=== PATIENT | male | born 1945 ===

== ENCOUNTER 2016-12-17 08:38 | Inpatient (IN) | payer OTHER ==
[2016-12-17] MEDS ORDERED: LIDOCAINE 1% 300 MG/30 ML SDV ONE (08:42)
[2016-12-17] MEDS ORDERED: MIDAZOLAM 2 MG/2 ML VIAL ONE ×2 (08:43→09:23)
[2016-12-17] MEDS ORDERED: VERAPAMIL 5 MG/2 ML VIAL ONE (08:43)
[2016-12-17] MEDS ORDERED: HEPARIN 10,000 UNIT/10 ML MDV ONE ×2 (08:43→10:00)
[2016-12-17] MEDS ORDERED: fentaNYL 100 MCG/2 ML INJ ONE (08:43)
[2016-12-17] MEDS ORDERED: IOPAMIDOL (ISOVUE-370) 150 ML BTL IV ONE ×2 (08:43→10:14)
[2016-12-17] MEDS ORDERED: ETOMIDATE 20 MG/10 ML VIAL IVP ONE (08:46)
[2016-12-17] MEDS ORDERED: BIVALIRUDIN 250 MG/5 ML VIAL IV ONE (08:47)
[2016-12-17] MEDS ORDERED: SUCCINYLCHOLINE CHLORIDE 200 MG/10 ML VIAL IVP ONE (08:47)
[2016-12-17] MEDS ORDERED: NITROGLYCERIN 1,500 MCG/15 ML VIAL MISC ONE (08:48)
[2016-12-17 08:52] VITALS: RESP 16
[2016-12-17 08:56] VITALS: O2SAT 93
[2016-12-17] MEDS ORDERED: MIDAZOLAM 2 MG/2 ML VIAL IVP ONE (09:00)
[2016-12-17 09:02] LABS: % IMMATURE GRANULYOCYTES 2.5 % (0.0-1.1); ABSOLUTE IMMATURE GRANULOCYTES 0.19 10^3/uL (0.00-0.10); ABSOLUTE NRBC COUNT 0.02 10^3/uL (0-0.01); ADD DIFF? NO; ADD MORPH? NO; ADD SCAN? NO; ATYPICAL LYMPHOCYTE FLAG 30 (0-99); FRAGMENT RBC FLAG 0 (0-99); HEMATOCRIT 51.6 % (40.0-51.0); HEMOGLOBIN 16.9 g/dL (13.7-17.5); LEFT SHIFT FLG 20 (0-99); LIPEMIA HEMOLYSIS FLAG 80 (0-99); MEAN CELL HEMOGLOBIN 30.5 pg (27.9-34.1); MEAN CELL HEMOGLOBIN CONCENTR. 32.8 g/dL (32.4-36.7); MEAN PLATELET VOLUME 12.6 fL (8.7-11.7); NRBC-AUTO% 0.3 % (0.0-0.2); PLATELET CLUMPS FLAG 10 (0-99); PLATELET COUNT 159 10^3/uL (150-400); RED BLOOD CELL COUNT 5.55 10^6/uL (4.40-6.38); RED CELL DISTRIBUTION WIDTH 13.7 % (11.5-15.2)
--- NOTE | 2016-12-17 09:08 | EDPHY ---
H & P Time Seen by Provider: 12/17/16 09:07 HPI/ROS: Chief complaint. Cardiac arrest HPI. Patient is a 71-year-old male here by EMS [place] Bystanders say that the patient suddenly collapsed. Bystander CPR was performed. Patient was found to be in asystole per EMS. He was given epinephrine intravenously with return of pulses. He was in ventricular tachycardia and was cardioverted with 200 joules. Patient arrives with agonal respirations and spontaneous but nonpurposeful movements. He does have pulses and blood pressure. Heart rate is about 150. Oxygen saturation is in the 80s. He vomits in the emergency department. ROS Unknown other than the above history Past Medical/Surgical History: Unknown Social History: Unknown Physical Exam: General Appearance: Nonpurposeful moved male severe distress vital signs show heart rate initially 150, blood pressure 120/93, O2 saturation was recorded at 91% but generally has been in the 80s Eyes: Pupils are reactive. ENT, vomited in mouth Respiratory: Inspiratory expiratory rhonchi and agonal respirations Cardiovascular: Tachycardia Gastrointestinal: Distended and large right inguinal hernia Neurological: Nonpurposeful movements Skin: Warm and dry, no rashes. Musculoskeletal: Neck is restrained in the emergency department as the history as the patient fell. Extremities symmetrical, full range of motion. Psychiatric: Agonal respirations. Nonverbal. Non purposeful movements Constitutional: Initial Vital Signs Heart Rate 150 H 12/17/16 08:40 Respiratory Rate 16 12/17/16 08:40 Blood Pressure 120/93 H 12/17/16 08:40 O2 Sat (%) 91 L 12/17/16 08:40 O2 Delivery Mode Ventilator Allergies/Adverse Reactions: No Known Allergies Allergy (Unverified 12/17/16 11:01) Home Medications: Medication Instructions Recorded Aspirin [Aspirin 325 mg (*)] 325 mg PO DAILY PRN 12/17/16 Aspirin [Aspirin 81mg (*)] 81 mg PO DAILY 12/17/16 Herbals/Supplements -Info Only 1 ea PO DAILY 12/17/16 Multivitamins [Multivitamin (*)] 1 each PO DAILY 12/17/16 [place]-3 Fatty Acids [Fish Oil 1000 1,000 mg PO DAILY 12/17/16 mg (*)] Medical Decision Making - Diagnostics EKG Interpretation: Sinus tachycardia with left axis deviation. Appears that there is acute ST elevation in the anterior septal leads with reciprocal depression. There is a left bundle branch block present. No arrhythmia. Heart rate is 121 Imaging Results: Imaging Impressions Chest X-Ray 12/17/16 08:42 Impression: 1. Status post intubation and placement of an esophagogastric tube. 2. Cardiomegaly with interstitial edema. One-view chest x-ray shows endotracheal tube in good position. Possible aspiration Procedures: IV normal saline, monitor. Patient arrives with no IV. He had an interosseous line placed per EMS but they accidentally pulled out while getting out of the ambulance. Rapid sequence intubation is performed by me with indication of airway protection and inadequate ventilation. I gave the patient etomidate 20 mg IV and succinylcholine 125 mg IV. Patient had good visualization of his cords with the glide scope but I was unable to get the tube to move enough anterior to get through the cords. He is then bagged and suction and up to oxygen saturation 93%. 2nd pass using laryngoscope and 7.5 blade was successful. The tube passed through the cords. Color change on colorimeter. Steam in tube. Bilateral breath sounds. Stable oxygen saturation. Following endotracheal intubation patient has an NG tube placed as it appears he has some gastric distension ED Course/Re-evaluation: Cardiac alert is called and and analytical lab analyst response. Patient is taken to analytical lab analyst for possible reperfusion. Differential Diagnosis: Differential diagnosis includes acute coronary syndrome, a arrhythmia, pulmonary embolus as causes of cardiac arrest. Patient has been resuscitated and now intubated. He is in critical condition and will go to the analytical lab analyst Critical Care Time: Critical care time exclusive of procedures 40 minutes - Data Points Laboratory Results: Laboratory Results 12/17/16 08:42 12/17/16 08:42 12/17/16 12/17/16 12/17/16 09:20 08:42 08:42 WBC 7.72 10^3/uL 10^3/uL (3.80-9.50) RBC 5.55 10^6/uL 10^6/uL (4.40-6.38) Hgb 16.9 g/dL g/dL (13.7-17.5) POC Hgb Hct 51.6 % H % (40.0-51.0) POC Hct MCV 93.0 fL fL (81.5-99.8) MCH 30.5 pg pg (27.9-34.1) MCHC 32.8 g/dL g/dL (32.4-36.7) RDW 13.7 % % (11.5-15.2) Plt Count 159 10^3/uL 10^3/uL (150-400) MPV 12.6 fL H fL (8.7-11.7) Neut % (Auto) 21.8 % L % (39.3-74.2) Lymph % (Auto) 65.3 % H % (15.0-45.0) [place] % (Auto) 5.6 % % (4.5-13.0) Eos % (Auto) 3.9 % % (0.6-7.6) Baso % (Auto) 0.9 % % (0.3-1.7) Nucleat RBC Rel Count 0.3 % H % (0.0-0.2) Absolute Neuts (auto) 1.69 10^3/uL L 10^3/uL (1.70-6.50) Absolute Lymphs (auto) 5.04 10^3/uL H 10^3/uL (1.00-3.00) Absolute Monos (auto) 0.43 10^3/uL 10^3/uL (0.30-0.80) Absolute Eos (auto) 0.30 10^3/uL 10^3/uL (0.03-0.40) Absolute Basos (auto) 0.07 10^3/uL 10^3/uL (0.02-0.10) Absolute Nucleated RBC 0.02 10^3/uL H 10^3/uL (0-0.01) Immature Gran % 2.5 % H % (0.0-1.1) Immature Gran # 0.19 10^3/uL H 10^3/uL (0.00-0.10) Puncture Site LEFT FEMORAL Patient Temperature 37.0 DEGREES DEGREES pCO2 55 mmHg H mmHg (34-38) pO2 82 mmHg H mmHg (65-75) Total CO2 18 mEq/L L mEq/L (23-27) ABG pH 7.11 L* (7.35-7.45) ABG PO2/FiO2 Ratio 82 RATIO RATIO ABG HCO3 17 mEq/L L mEq/L (22-26) ABG O2 Saturation 91 % L % (92-95) ABG Base Excess -13.2 mEq/L L mEq/L (-2.5-2.5) O2 Concentration % 100 % % (0-100) Respiration Rate 20 Actual Respiration Rate 18 Set Respiration Rate 20 SIMV YES PEEP 5 POC Sodium Sodium 141 mEq/L mEq/L (134-144) POC Potassium Potassium 3.9 mEq/L mEq/L (3.5-5.2) POC Chloride Chloride 105 mEq/L mEq/L (97-110) Carbon Dioxide 11 mEq/l L mEq/l (22-31) Anion Gap 25 mEq/L H mEq/L (8-16) POC BUN BUN 14 mg/dL mg/dL (7-23) Creatinine 1.3 mg/dL mg/dL (0.7-1.3) POC Creatinine Estimated GFR 54 Glucose 306 mg/dL H mg/dL (70-100) POC Glucose Calcium 9.5 mg/dL mg/dL (8.5-10.4) Troponin I 0.015 ng/mL ng/mL (0-0.034) Ethyl Alcohol < 10 mg/dL mg/dL (0-10) 12/17/16 08:37 WBC RBC Hgb POC Hgb 17.3 gm/dL gm/dL (13.7-17.5) Hct POC Hct 51 % % (40-51) MCV MCH MCHC RDW Plt Count MPV Neut % (Auto) Lymph % (Auto) Dav[place] % (Auto) Eos % (Auto) Baso % (Auto) Nucleat RBC Rel Count Absolute Neuts (auto) Absolute Lymphs (auto) Absolute Monos (auto) Absolute Eos (auto) Absolute Basos (auto) Absolute Nucleated RBC Immature Gran % Immature Gran # Puncture Site Patient Temperature pCO2 pO2 Total CO2 ABG pH ABG PO2/FiO2 Ratio ABG HCO3 ABG O2 Saturation ABG Base Excess O2 Concentration % Respiration Rate Actual Respiration Rate Set Respiration Rate SIMV PEEP POC Sodium 143 mEq/L mEq/L (134-144) Sodium POC Potassium 3.9 mEq/L mEq/L (3.3-5.0) Potassium POC Chloride 106 mEq/L mEq/L (97-110) Chloride Carbon Dioxide Anion Gap POC BUN 17 mg/dL mg/dL (7-23) BUN Creatinine POC Creatinine 1.3 mg/dL mg/dL (0.7-1.3) Estimated GFR Glucose POC Glucose 304 mg/dL H mg/dL (70-100) Calcium Troponin I Ethyl Alcohol Medications Given: Discontinued Medications Etomidate (Etomidate) 20 mg IVP EDNOW ONE Stop: 12/17/16 08:47 Last Admin: 12/17/16 08:46 Dose: 20 mg Furosemide (Lasix Injection) 40 mg IVP ONCE ONE Stop: 12/17/16 13:23 Last Admin: 12/17/16 13:19 Dose: 40 mg Epinephrine HCl 1 mg/ Dextrose 250 mls @ 0 mls/hr IV CONT GAYLE; Per Protocol PRN Reason: Protocol Stop: 06/15/17 09:59 Last Admin: 12/17/16 12:42 Dose: 250 mls Midazolam HCl (Versed) 5 mg IVP EDNOW ONE Stop: 12/17/16 09:01 Last Admin: 12/17/16 09:00 Dose: 5 mg Sodium Bicarbonate (Sodium Bicarbonate) 50 meq IVP ONCE ONE Stop: 12/17/16 11:42 Last Admin: 12/17/16 11:59 Dose: 50 meq Succinylcholine Chloride (Quelicin) 120 mg IVP EDNOW ONE Stop: 12/17/16 08:48 Last Admin: 12/17/16 08:47 Dose: 120 mg Point of Care Test Results: 12/17/16 08:37 POC Sodium 143 POC Potassium 3.9 POC Chloride 106 POC BUN 17 POC Creatinine 1.3 POC Glucose 304 H Departure - Departure Disposition: [facility] Inpatient Acute Clinical Impression: Cardiac arrest Condition: Critical
[2016-12-17] MEDS ORDERED: DOPamine/DEXTROSE/250 ML BAG IV ONE (09:12)
[2016-12-17] MEDS ORDERED: PHENYLEPHRINE HCL 100 MCG/ML SYR ONE (09:13)
--- NOTE | 2016-12-17 09:15 | CPEKG ---
Heart Rate: 121 RR Interval: 496 P-R Interval: 100 QRSD Interval: 166 QT Interval: 388 QTC Interval: 551 P [place]: 223 QRS [place]: 13 T Wave [place]: 140 EKG Severity - ABNORMAL ECG - EKG Impression: SINUS OR ECTOPIC ATRIAL TACHYCARDIA EKG Impression: LEFT BUNDLE BRANCH BLOCK Electronically Signed By: Wayne Carvajal 17-Dec-2016 16:02:31
[2016-12-17 09:19] VITALS: BP 120/93; PULSE 146
[2016-12-17 09:21] LABS: TROPONIN I 0.015 ng/mL (0-0.034)
[2016-12-17] MEDS ORDERED: ETOMIDATE 40 MG/20 ML INJ ONE (09:21)
[2016-12-17] MEDS ORDERED: SUCCINYLCHOLINE CHLORIDE*ANESTHESIA ONLY*200 MG/10 ML SYR IVP ONE (09:22)
[2016-12-17 09:31] LABS: CALCIUM 9.5 mg/dL (8.5-10.4); CARBON DIOXIDE 11 mEq/l (22-31); CHLORIDE 105 mEq/L (97-110); CREATININE 1.3 mg/dL (0.7-1.3); GLOMERULAR FILTRATION RATE 54; GLUCOSE 306 mg/dL (70-100); SODIUM 141 mEq/L (134-144)
[2016-12-17] MEDS ORDERED: VECURONIUM BROMIDE 10 MG VIAL ONE ×2 (09:37→09:40)
[2016-12-17 09:41] LABS: BASE EXCESS -13.2 mEq/L (-2.5-2.5); BICARBONATE 17 mEq/L (22-26); MEASURED OXYGEN SATURATION 91 % (92-95); PCO2 55 mmHg (34-38); PO2 82 mmHg (65-75); TCO2 18 mEq/L (23-27)
[2016-12-17 09:43] LABS: O2 CONCENTRATIION 100 % (0-100); P/F RATIO 82 RATIO; PATIENT RATE 18; SIMV YES; TOTAL RATE 20
[2016-12-17 09:51] LABS: ANION GAP 25 mEq/L (8-16); POTASSIUM 3.9 mEq/L (3.5-5.2)
[2016-12-17 10:19] LABS: ETHANOL SERUM < 10 mg/dL (0-10)
[2016-12-17 10:19] LABS: BASE EXCESS -12.1 mEq/L (-2.5-2.5); BICARBONATE 18 mEq/L (22-26); MEASURED OXYGEN SATURATION 79 % (92-95); PCO2 58 mmHg (34-38); PO2 57 mmHg (65-75); TCO2 20 mEq/L (23-27)
[2016-12-17 10:24] LABS: SIMV YES
[2016-12-17 10:25] LABS: O2 CONCENTRATIION 100 % (0-100); P/F RATIO 57 RATIO; TOTAL RATE 24
[2016-12-17] MEDS ORDERED: ATROPINE SULFATE 1 MG/10 ML SYR IVP PRN (11:01)
[2016-12-17] MEDS ORDERED: NITROGLYCERIN 0.4 MG BTL SL PRN (11:01)
--- NOTE | 2016-12-17 11:14 | PDCARCONS ---
Cardiology Consult Reason for Consult: Cardiac alert Chief Complaint: Cardiac alert Requesting Physician: Wei History of Present Illness: 71-year-old male no prior cardiovascular history [place] bus [place]. He went down acutely without complaint. Initial bystander CPR was performed. On arrival of the paramedics he was found to be in asystole. He was given epinephrine with return of spontaneous circulation and brought to the emergency department on my arrival he had a left bundle branch block with tachycardia. He was paralyzed and being intubated by Dr. Carvajal. In light of sudden cardiac arrest with asystole he was brought to the cardiac cath lab manager for further evaluation. Past medical history is negative for coronary artery disease. He has not seen a physician in some time. Risk factors reported by his were negative for hypertension, hyperlipidemia , smoking, diabetes, family history of early heart disease. Patient has been traveling recently just completed a long car trip to [place] again back and forth a week and a half ago. Review of systems by his 's account was negative for any illness recently. History Information - Allergies/Home Medication List Allergies/Adverse Reactions: No Known Allergies Allergy (Unverified 12/17/16 11:01) I have personally reviewed and updated: family history, medical history, social history, surgical history - Past Medical History no pertinent PMH - Surgical History Reports: no pertinent surgical hx - Family History Positive for: non-pertinent - Social History Smoking Status: Never smoked Alcohol Use: Occasionally Physical Exam Temp Pulse Resp BP Pulse Ox 146 H 16 120/93 H 93 12/17/16 09:00 12/17/16 09:00 12/17/16 09:00 12/17/16 09:00 Constitutional: other (Acutely ill, paralyzed and intubated) Cardiovascular: regular rate and rhythym Peripheral Pulses: 1+: carotid (R), carotid (L), 2+: femoral (R), femoral (L) Respiratory: rhonchi Gastrointestinal: normoactive bowel sounds, other (Large inguinal hernia on the right) Skin: no rashes or abrasions Neurologic: other (Paralyzed in drug induced coma) Lab and Imaging 12/17/16 08:42 12/17/16 08:42 WBC 7.72 10^3/uL (3.80-9.50) 12/17/16 08:42 RBC 5.55 10^6/uL (4.40-6.38) 12/17/16 08:42 Hgb 16.9 g/dL (13.7-17.5) 12/17/16 08:42 POC Hgb 17.3 gm/dL (13.7-17.5) 12/17/16 08:37 Hct 51.6 % (40.0-51.0) H 12/17/16 08:42 POC Hct 51 % (40-51) 12/17/16 08:37 MCV 93.0 fL (81.5-99.8) 12/17/16 08:42 MCH 30.5 pg (27.9-34.1) 12/17/16 08:42 MCHC 32.8 g/dL (32.4-36.7) 12/17/16 08:42 RDW 13.7 % (11.5-15.2) 12/17/16 08:42 Plt Count 159 10^3/uL (150-400) 12/17/16 08:42 MPV 12.6 fL (8.7-11.7) H 12/17/16 08:42 Neut % (Auto) 21.8 % (39.3-74.2) L 12/17/16 08:42 Lymph % (Auto) 65.3 % (15.0-45.0) H 12/17/16 08:42 [place] % (Auto) 5.6 % (4.5-13.0) 12/17/16 08:42 Eos % (Auto) 3.9 % (0.6-7.6) 12/17/16 08:42 Baso % (Auto) 0.9 % (0.3-1.7) 12/17/16 08:42 Nucleat RBC Rel Count 0.3 % (0.0-0.2) H 12/17/16 08:42 Absolute Neuts (auto) 1.69 10^3/uL (1.70-6.50) L 12/17/16 08:42 Absolute Lymphs (auto) 5.04 10^3/uL (1.00-3.00) H 12/17/16 08:42 Absolute Monos (auto) 0.43 10^3/uL (0.30-0.80) 12/17/16 08:42 Absolute Eos (auto) 0.30 10^3/uL (0.03-0.40) 12/17/16 08:42 Absolute Basos (auto) 0.07 10^3/uL (0.02-0.10) 12/17/16 08:42 Absolute Nucleated RBC 0.02 10^3/uL (0-0.01) H 12/17/16 08:42 Immature Gran % 2.5 % (0.0-1.1) H 12/17/16 08:42 Immature Gran # 0.19 10^3/uL (0.00-0.10) H 12/17/16 08:42 Puncture Site LEFT FEMORAL 12/17/16 10:05 Patient Temperature 37.0 DEGREES 12/17/16 10:05 pCO2 58 mmHg (34-38) H 12/17/16 10:05 pO2 57 mmHg (65-75) L 12/17/16 10:05 Total CO2 20 mEq/L (23-27) L 12/17/16 10:05 ABG pH 7.12 (7.35-7.45) L* 12/17/16 10:05 ABG PO2/FiO2 Ratio 57 RATIO 12/17/16 10:05 ABG HCO3 18 mEq/L (22-26) L 12/17/16 10:05 ABG O2 Saturation 79 % (92-95) L 12/17/16 10:05 ABG Base Excess -12.1 mEq/L (-2.5-2.5) L 12/17/16 10:05 O2 Concentration % 100 % (0-100) 12/17/16 10:05 Respiration Rate 24 12/17/16 10:05 Actual Respiration Rate 18 12/17/16 09:20 Set Respiration Rate 24 12/17/16 10:05 SIMV YES 12/17/16 10:05 Tidal Volume 700 12/17/16 10:05 PEEP 8 12/17/16 10:05 POC Sodium 143 mEq/L (134-144) 12/17/16 08:37 Sodium 141 mEq/L (134-144) 12/17/16 08:42 POC Potassium 3.9 mEq/L (3.3-5.0) 12/17/16 08:37 Potassium 3.9 mEq/L (3.5-5.2) 12/17/16 08:42 POC Chloride 106 mEq/L (97-110) 12/17/16 08:37 Chloride 105 mEq/L (97-110) 12/17/16 08:42 Carbon Dioxide 11 mEq/l (22-31) L 12/17/16 08:42 Anion Gap 25 mEq/L (8-16) H 12/17/16 08:42 POC BUN 17 mg/dL (7-23) 12/17/16 08:37 BUN 14 mg/dL (7-23) 12/17/16 08:42 Creatinine 1.3 mg/dL (0.7-1.3) 12/17/16 08:42 POC Creatinine 1.3 mg/dL (0.7-1.3) 12/17/16 08:37 Estimated GFR 54 12/17/16 08:42 Glucose 306 mg/dL (70-100) H 12/17/16 08:42 POC Glucose 304 mg/dL (70-100) H 12/17/16 08:37 Calcium 9.5 mg/dL (8.5-10.4) 12/17/16 08:42 Troponin I 0.015 ng/mL (0-0.034) 12/17/16 08:42 Ethyl Alcohol < 10 mg/dL (0-10) 12/17/16 08:42 Visualized and Interpreted EKG results: Yes EKG Interpretation: Positive for: left bundle branch block A/P Assessment: Discussion: Acute cardiac arrest with initial rhythm of asystole responded to IV epinephrine. EKG now shows left bundle branch block. Recommendations are for urgent cardiac catheterization as this is considered an ST segment elevation equivalent. With asystole am concerned about pulmonary embolic disease in the setting of recent travel. Prognosis is somewhat guarded. Discussed with . Will proceed
[2016-12-17] MEDS ORDERED: HEPARIN/DEXTROSE 500 ML IV SCH (11:15)
--- NOTE | 2016-12-17 11:21 | PDDXCAT ---
Diagnostic Cath Note - . Date: 12/17/16 Level Vial Inside Grinder: [place] Indication: Resuscitated from sudden cardiac - Procedure Access: left groin Procedure: left heart catheterization, coronary angiography - Materials Left Heart Cath size: 6F Left Heart Cath materials: standard multipack (JL4, JR4, pigtail) - Findings-Left Heart Catheterization LM: Unobstructed LAD: 85% stenosis of the mid LAD with GIL grade 3 flow LCX: 75% stenosis with GIL grade 3 flow RCA: Dominant: 85% stenosis with GIL grade 3 flow Complications: Asystolic cardiac arrest on the table requiring CPR. Assessment: 1. Diffuse three-vessel coronary disease with GIL grade 3 flow. 2. Severe LV dysfunction by echocardiogram ejection fraction initially less than 20%. Plan: After reviewing diagnostic angiograms, the patient was relatively stable. I considered the possibility of PCI of the LAD and right coronary. This was in the setting of severe LV dysfunction and cardiac arrest. After anticoagulating the patient and putting a JL4 guiding catheter in left main coronary artery attempts at wiring the LAD were made. As we are beginning the procedure he became asystolic again. CPR was performed immediately. The patient was administered multiple rounds of epinephrine and 2 mg of atropine with restorationist of a regular rhythm. An echocardiogram continued to show severe LV dysfunction, PA pressures were estimated 100 mm of mercury. At this point it was elected to put an intra-aortic balloon pump in to support blood pressure. This was performed from the left femoral artery patient continued to have episodes of bradycardia and asystole. Using a 7 Georgian PYP catheter I went through the the right heart into the right pulmonary artery. PA pressures fell from 100-50 mm of mercury with stabilization of rate and blood pressure. Based on recent travel I was concerned about pulmonary embolic disease. Dr. Tracey from Radiology was emergently consulted. She came and performed a pulmonary arteriogram which revealed a widely patent left and right pulmonary artery. Dr. Patton assisted me with insertion of the intra-aortic balloon pump. A 7 Georgian sheath was inserted in the right femoral artery for minus of blood pressure. A temporary pacing wire was advanced from the left femoral vein into the right heart capture was obtained. This was done in the setting of complete heart block. It was set at 110 beats per minute. Metabolic assessment revealed a pH is 7.14. He was administered 2 amps of bicarbonate. He was started on epinephrine drip as well as a dopamine drip to support blood pressure. Echocardiography showed serial improvement in LV function with the balloon pump and IV pressors. It was elected to stop at this time and transfer the patient to the intensive care unit for correction of his metabolic abnormalities and stabilization. Depending on how he recovers would consider revascularization in the future. Procedures performed 1. Left heart catheterization coronary angiography. Intra procedure echocardiogram. CPR with ACLS. Insertion of an intra-aortic balloon pump. Insertion of a temporary pacing wire. Insertion of a right heart catheter with pulmonary arteriogram. Final diagnosis status post cardiac arrest with a ischemic cardiomyopathy and cardiogenic shock. At the time of transfer from the matlab developer PH remains poor at 7.15. Prognosis is somewhat guarded. Results discussed with the patient's and daughter who is a nurse. Will continue aggressive supportive care with clinical follow-up. Patient Problems: Problems Problem Status Onset Cardiogenic shock Acute Acute systolic heart failure Acute Ischemic dilated cardiomyopathy Acute Coronary artery disease Acute Cardiac arrest Acute
[2016-12-17 11:28] LABS: BASE EXCESS -10.7 mEq/L (-2.5-2.5); BICARBONATE 21 mEq/L (22-26); MEASURED OXYGEN SATURATION 62 % (92-95); PO2 43 mmHg (65-75); TCO2 23 mEq/L (23-27)
[2016-12-17] MEDS ORDERED: NOREPINEPHRINE/NS 500 ML IV SCH (11:30)
[2016-12-17] MEDS ORDERED: SODIUM BICARBONATE 50 MEQ/50 ML SYR IVP ONE (11:41)
[2016-12-17 11:42] LABS: ASSIST CONTROL YES
[2016-12-17 11:43] LABS: END TIDAL CO2 15
[2016-12-17 11:45] LABS: PCO2 72 mmHg (34-38)
[2016-12-17] MEDS ORDERED: FUROSEMIDE 20 MG/2 ML VIAL ONE ×2 (11:45→12:53)
[2016-12-17] MEDS ORDERED: SODIUM BICARBONATE 150 MEQ in D5W 1,000 ML IV SCH (11:45)
[2016-12-17] MEDS ORDERED: D5W 1,000 ML IV SCH (11:47)
[2016-12-17] MEDS ORDERED: SODIUM BICARBONATE 50 MEQ/50 ML SYR ONE (11:47)
[2016-12-17] MEDS ORDERED: D50W 25 GM/50 ML SYR IVP PRN (11:47)
[2016-12-17] MEDS ORDERED: INSULIN REGULAR HUMAN 100 UNIT in NS 100 ML IV SCH (11:47)
[2016-12-17 12:05] LABS: ALANINE AMINOTRANSFERASE 256 IU/L (21-72); ALKALINE PHOSPHATASE 49 IU/L (38-126); ANION GAP 13 mEq/L (8-16); ASPARTATE AMINOTRANSFERASE 325 IU/L (17-59); BILIRUBIN,TOTAL 0.9 mg/dL (0.1-1.4); BILIRUBIN-CONJUGATED 0.5 mg/dL (0.0-0.5); BILIRUBIN-UNCONJUGATED 0.4 mg/dL (0.0-1.1); CALCIUM 7.3 mg/dL (8.5-10.4); CARBON DIOXIDE 20 mEq/l (22-31); CHLORIDE 104 mEq/L (97-110); CREATININE 1.3 mg/dL (0.7-1.3); GLOMERULAR FILTRATION RATE 54; GLUCOSE 437 mg/dL (70-100); MAGNESIUM 2.4 mg/dL (1.6-2.3); POTASSIUM 3.7 mEq/L (3.5-5.2); SODIUM 137 mEq/L (134-144); TOTAL PROTEIN 5.5 g/dL (6.3-8.2)
--- NOTE | 2016-12-17 12:38 | ECHO ---
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 The RVSP based on the tricuspid regurgitant jet was near 100 mmHg and post Right heart cath the pressures were near 50 mmHg. Aortic Valve There is moderate aortic valve calcification. The Ao mean PG was 19 mmHg on a balloon pump. Conclusion This is a limited echo to evaluate for LV Fx/Cardiac alert. The initial images of the left venticle demonstrated a ejection fraction of 25%, He then went into cardiac arrest and cardiac images post arrest displayed a ejection fraction of 15% Balloon pump placed. The RVSP based on the tricuspid regurgitant jet was near 100 mmHg and post Right heart cath the pressures were near 50 mmHg. There is moderate aortic valve calcification. The Ao mean PG was 19 mmHg on a balloon pump. Final EF 35-45% Mild aortic stenosis. Final Reading Physician: Khurram Jones signed on 12/17/2016 12:36 PM Ordering Physician: MAGEN ARMANDO Performed By: Bill Bowen, CS
[2016-12-17] MEDS ORDERED: EPINEPHrine 1 MG/10 ML SYR IVP ONE ×2 (12:40→16:10)
[2016-12-17 12:56] LABS: CK-MB INTERPRETATION POSITIVE (NEGATIVE)
[2016-12-17] MEDS ORDERED: FUROSEMIDE 40 MG/4 ML VIAL IVP ONE (13:22)
[2016-12-17] MEDS: EPINEPHrine 2 MG in D5W 500 ML IV SCH ×3 (13:23→15:06)
[2016-12-17 14:35] LABS: BASE EXCESS -9.8 mEq/L (-2.5-2.5); BICARBONATE 23 mEq/L (22-26); MEASURED OXYGEN SATURATION 75 % (92-95); PCO2 75 mmHg (34-38); PO2 50 mmHg (65-75); TCO2 25 mEq/L (23-27)
[2016-12-17 14:42] LABS: ASSIST CONTROL YES; O2 CONCENTRATIION 100 % (0-100); P/F RATIO 50 RATIO
[2016-12-17 14:43] LABS: TOTAL RATE 30
[2016-12-17] MEDS ORDERED: ALBUMIN 5% 500 ML BOTTLE IV ONE (14:56)
[2016-12-17 14:57] LABS: ADD DIFF? NO; ADD MORPH? NO; ADD SCAN? YES; ATYPICAL LYMPHOCYTE FLAG 10 (0-99); FRAGMENT RBC FLAG 0 (0-99); HEMATOCRIT 49.1 % (40.0-51.0); HEMOGLOBIN 16.2 g/dL (13.7-17.5); LIPEMIA HEMOLYSIS FLAG 80 (0-99); MEAN CELL HEMOGLOBIN 29.8 pg (27.9-34.1); MEAN CELL VOLUME 90.3 fL (81.5-99.8); MEAN PLATELET VOLUME 12.4 fL (8.7-11.7); PLATELET CLUMPS FLAG 10 (0-99); PLATELET COUNT 175 10^3/uL (150-400); RED BLOOD CELL COUNT 5.44 10^6/uL (4.40-6.38); RED CELL DISTRIBUTION WIDTH 14.2 % (11.5-15.2)
[2016-12-17 14:58] LABS: LEFT SHIFT FLG 230 (0-99)
[2016-12-17 15:06] LABS: INR 1.34 (0.83-1.16); PROTIME(PATIENT) 16.6 SEC (12.0-15.0)
[2016-12-17 15:47] LABS: SCAN POSITIVE
[2016-12-17 15:53] LABS: PLATELET ESTIMATE ADEQUATE (ADEQ)
[2016-12-17 16:00] LABS: CK-MB INTERPRETATION POSITIVE (NEGATIVE)
--- NOTE | 2016-12-17 16:04 | PDANEPAE ---
ANE History of Present Illness resp faliure ANE Past Medical History Past Medical History: pt in extremis in ICU. Oxy sats in 60s, intubated, ventillated, pressure supported by epi and bicarb infusion, ANE Review of Systems Review of Systems: unable to obtain - Pacemaker Pacemaker Set Rate: 100 ANE Patient History - Allergies Allergies/Adverse Reactions: No Known Allergies Allergy (Unverified 12/17/16 11:01) - Home Medications Home Medications: Aspirin [Aspirin 325 mg (*)] 325 mg PO DAILY PRN 12/17/16 [Last Taken Unknown] Aspirin [Aspirin 81mg (*)] 81 mg PO DAILY 12/17/16 [Last Taken Unknown] Herbals/Supplements -Info Only 1 ea PO DAILY 12/17/16 [Last Taken Unknown] Multivitamins [Multivitamin (*)] 1 each PO DAILY 12/17/16 [Last Taken Unknown] [place]-3 Fatty Acids [Fish Oil 1000 mg (*)] 1,000 mg PO DAILY 12/17/16 [Last Taken Unknown] - Smoking Hx Smoking Status: Never smoked - Alcohol Use Alcohol Use: Occasionally ANE Labs/Vital Signs - Labs Result Diagrams: 12/17/16 14:15 12/17/16 11:40 - Vital Signs Blood Pressure: 120/93 Heart Rate: 146 Respiratory Rate: 16 O2 Sat (%): 93 Height: 167.64 cm Weight: 95 kg ANE Physical Exam - Airway Mallampati Score: Unable to assesss Mouth exam: ETT in situ - Pulmonary Pulmonary: respiratory distress - Cardiovascular Cardiovascular: other (external pacer and balloon pump) - ASA Status ASA Status: V, E ANE Anesthesia Plan Anesthesia Plan: general endotracheal anesthesia Lines/Monitors: arterial line, central line, SHAQUILLE Urgent/Emergent Case: Adwoa ortiz completed preop but documented later for safe timely pt care (pre-op evaluation filled out in computer after case completed)
[2016-12-17] MEDS ORDERED: ROCURONIUM 50 MG/5 ML VIAL ONE (16:11)
--- NOTE | 2016-12-17 17:03 | GCON ---
[f rep st] CONSULTATION PULMONARY/CRITICAL CARE CONSULTATION DATE OF CONSULTATION: 12/17/2016 REFERRING PHYSICIAN: Greg Delarosa MD REASON FOR CONSULTATION: Management of refractory hypoxemia with pulmonary edema. HISTORY: The patient is a 71-year-old gentleman who does not get routine medical care, but has no significant medical problems or limitations. He had just recently returned from a trip to [place]. Bystander CPR was performed. He was found to be in asystole and was given epinephrine with return of spontaneous circulation. He was brought to the emergency department. He was intubated in the emergency department and brought to the catheterization lab emergently, where Dr. Delarosa found the patient had significant triple-vessel disease, but no acute thrombosis. He was also found to have severe pulmonary hypertension. Dr. Delarosa attempted to engage the left anterior descending coronary artery, but the patient had repeat asystole during that time, and those efforts were abandoned. The patient's rhythm was restored. A pulmonary angiography was performed with Drs. Delarosa and Alexy, and there were no proximal pulmonary emboli seen. The patient was brought back to the intensive care unit on epinephrine with an intra-aortic balloon pump. He had severe hypoxemia. PAST MEDICAL HISTORY: None. ALLERGIES: None. MEDICATIONS: None. SOCIAL HISTORY: The patient does not smoke. He uses alcohol occasionally. REVIEW OF SYSTEMS: Unobtainable. PHYSICAL EXAMINATION: GENERAL: The patient is intubated. He is not on any sedation. He is unresponsive. VITAL SIGNS: Blood pressure is 80/50 on epinephrine at 0.1 with an intra-aortic balloon, pump which is augmenting. His heart rate is paced at 100 with a transvenous pacemaker. His oxygen saturations were in the low 70s. HEENT: Normocephalic and atraumatic. He has endotracheal tube in place. NECK: No adenopathy. Trachea is midline. CHEST: Clear to auscultation. CARDIAC: Regular, tachycardia, without murmur. ABDOMEN: Soft. He has a large scrotal hernia. EXTREMITIES: No clubbing, cyanosis, or edema. He has good pulses peripherally. LABORATORY: White blood count of 7.7 with a hemoglobin of 16.9, and platelet count is 159. BUN is 18 with a creatinine of 1.3. Potassium is 3.7. CPK is 408, troponin is 2.6. Beta hydroxybutyrate is 0.11. Glucose is 300-400. Arterial blood gas shows a pH of 7.10 with a pCO2 of 72 and a pO2 of 43 on 100% oxygen with IMV with a rate of 30, tidal volume of 700. Lactate is 5.3. IMAGING: Chest x-ray shows extensive bilateral alveolar infiltrates, upper lobe predominant. Images reviewed. ASSESSMENT: Status post [id number] arrest. The patient had some purposeful movements initially, so was not started on the HACA protocol. He does not have any acute coronary lesions, and a pulmonary angiogram is negative for significant pulmonary emboli. The cause of his recurrent asystole is unknown. He has severe gas exchange limitation, with markedly elevated CO2 and severe hypoxemia despite mechanical ventilation with 100% oxygen and a high minute ventilation. The patient was given doses of Lasix with resultant diuresis, but this did not improve his oxygen saturations. His pupils were initially reactive, but became nonreactive as his oxygen saturations fell. I contacted Dr. Escobar, who agreed to put in an oxygenating catheter so that ECMO could be performed. However, the patient deteriorated on being transferred to the operating room, developed complete heart block that transiently responded to repositioning of the transvenous pacemaker, but the patient then developed progressive hypotension that was unresponsive to epinephrine. CPR was initiated. The patient's nikolai blood pressure fell to the 40s-50s with an agonal rhythm despite CPR. Copious amounts of bloody fluid began to come from the endotracheal tube. Because of the progressive cardiac decline as well as refractory hypoxemia and respiratory acidosis with evidence of fulminate pulmonary edema, further resuscitation efforts were ceased, and the patient was pronounced . Total critical care time involved in managing this highly unstable patient between 11:30 and 4 o'clock was 140 minutes. /[id number]/MODL MTDD
[2016-12-17 18:52] VITALS: TEMP 97.7
[2016-12-17] MEDS ORDERED: CHLORHEXIDINE GLUCONATE 15 ML UDL PO SCH (21:00)
[2016-12-17] MEDS ORDERED: FAMOTIDINE 20 MG/NACL 50 ML IV SCH (21:00)
== END 2016-12-17 19:19 | disposition expired | DRG 270 ==
LOC: F2N 11:10
PROVIDERS: ADMIT Internal Medicine Interventional Cardiology; ATTEND Internal Medicine Interventional Cardiology
PROC: 0BH18EZ Insertion of Endotracheal Airway into Trachea, Via Natural or Artificial Opening Endoscopic (ICD-10-PCS; 2016-12-17)
PROC: 5A1935Z Respiratory Ventilation, Less than 24 Consecutive Hours (ICD-10-PCS; 2016-12-17)
PROC: 0D9670Z Drainage of Stomach with Drainage Device, Via Natural or Artificial Opening (ICD-10-PCS; 2016-12-17)
PROC: B31S1ZZ Fluoroscopy of Right Pulmonary Artery using Low Osmolar Contrast (ICD-10-PCS; 2016-12-17)
PROC: B31T1ZZ Fluoroscopy of Left Pulmonary Artery using Low Osmolar Contrast (ICD-10-PCS; 2016-12-17)
PROC: 5A1213Z Performance of Cardiac Pacing, Intermittent (ICD-10-PCS; principal; 2016-12-17 15:30)
PROC: B2111ZZ Fluoroscopy of Multiple Coronary Arteries using Low Osmolar Contrast (ICD-10-PCS; principal; 2016-12-17 15:30)
PROC: 5A12012 Performance of Cardiac Output, Single, Manual (ICD-10-PCS; principal; 2016-12-17 15:30)
PROC: 5A02210 Assistance with Cardiac Output using Balloon Pump, Continuous (ICD-10-PCS; principal; 2016-12-17 15:30)
PROC: 4A023N7 Measurement of Cardiac Sampling and Pressure, Left Heart, Percutaneous Approach (ICD-10-PCS; principal; 2016-12-17 15:30)
DX: I46.9 Cardiac arrest, cause unspecified (principal); R57.0 Cardiogenic shock; R40.2112 Coma scale, eyes open, never, at arrival to emergency department; R40.2212 Coma scale, best verbal response, none, at arrival to emergency department; R40.2312 Coma scale, best motor response, none, at arrival to emergency department; J81.0 Acute pulmonary edema; E87.2 Acidosis; I25.5 Ischemic cardiomyopathy; I25.10 Atherosclerotic heart disease of native coronary artery without angina pectoris; I27.2 Other secondary pulmonary hypertension; I44.2 Atrioventricular block, complete
CPT/HCPCS: 82947-QW; C1769; C1887; G0480; J0171; J0330; J0583; J1265; J1644; J1815; J1940; J2250; J2370; J3010; P9041; Q9967